=== PATIENT | female | born 1950 | race Caucasian/White ===

== ENCOUNTER 2017-08-23 07:55 | Day surgery (SDC) | payer MEDICARE, OTHER ==
[~2017-08-23] VITALS: Ht 157.5 cm; Wt 87.8 kg
[~2017-08-23 07:55] MED LIST: ASPI81EC PO; ATOR10; Aspirin EC81 MG; CALCAVITDA PO; CETI5; CHOL10002 PO; CITA20 PO; DHEA; ESTR1; LEVSOD100 PO; LISHYD2012 PO; METF500 PO; METF500C PO; METO50ER; MULVITMIND PO; Multiple Vitam1 EAC1 PO; OLME20; SIMV10 PO; Simvastatin20 MG PO; THYR60; VITAMIN D32000 UNIT PO; ZESTORETIC 20-121 EA PO
== END 2017-08-23 10:33 | disposition home or self-care (01) ==
LOC: ORSCSDS 07:55
PROVIDERS: Surgery
PROC: 0DBP8ZX Excision of Rectum, Via Natural or Artificial Opening Endoscopic, Diagnostic (ICD-10-PCS; principal; 2017-08-23 09:15)
PROC: 0DBN8ZX Excision of Sigmoid Colon, Via Natural or Artificial Opening Endoscopic, Diagnostic (ICD-10-PCS; principal; 2017-08-23 09:15)
PROC: 0DBM8ZX Excision of Descending Colon, Via Natural or Artificial Opening Endoscopic, Diagnostic (ICD-10-PCS; principal; 2017-08-23 09:15)
PROC: 0DBH8ZX Excision of Cecum, Via Natural or Artificial Opening Endoscopic, Diagnostic (ICD-10-PCS; principal; 2017-08-23 09:15)
DX: Z86.010 Personal history of colon polyps (principal); D12.0 Benign neoplasm of cecum; D12.4 Benign neoplasm of descending colon; D12.5 Benign neoplasm of sigmoid colon; D12.8 Benign neoplasm of rectum; E11.40 Type 2 diabetes mellitus with diabetic neuropathy, unspecified; I10 Essential (primary) hypertension; E03.9 Hypothyroidism, unspecified; E78.5 Hyperlipidemia, unspecified; Z79.82 Long term (current) use of aspirin; Z79.84 Long term (current) use of oral hypoglycemic drugs; Z79.899 Other long term (current) drug therapy
CPT/HCPCS: 82947; 88305

== ENCOUNTER → 2018-01-13 | Outpatient (CLI) | payer MEDICARE, OTHER | END | disposition home or self-care (01) | LOC: LAB 17:20 → LAB SHORT 17:20 | DX: N39.0 Urinary tract infection, site not specified (principal) | CPT/HCPCS: 87086 ==

== ENCOUNTER 2018-10-05 07:12 | Day surgery (SDC) | payer MEDICARE, OTHER ==
[~2018-10-05] VITALS: Ht 162.6 cm; Wt 91.2 kg
[~2018-10-05 07:12] MED LIST changes: +GLIP2.5ER; +Omeprazole20 M1
== END 2018-10-05 09:28 | disposition home or self-care (01) ==
LOC: ORSCSDS 07:12
PROVIDERS: Surgery
PROC: 0DJ08ZZ Inspection of Upper Intestinal Tract, Via Natural or Artificial Opening Endoscopic (ICD-10-PCS; principal; 2018-10-05 08:30)
PROC: 0DBL8ZX Excision of Transverse Colon, Via Natural or Artificial Opening Endoscopic, Diagnostic (ICD-10-PCS; principal; 2018-10-05 08:30)
PROC: 0DBP8ZX Excision of Rectum, Via Natural or Artificial Opening Endoscopic, Diagnostic (ICD-10-PCS; principal; 2018-10-05 08:30)
DX: K21.9 Gastro-esophageal reflux disease without esophagitis (principal); R11.0 Nausea; Z86.010 Personal history of colon polyps; D12.3 Benign neoplasm of transverse colon; D12.8 Benign neoplasm of rectum; K57.30 Diverticulosis of large intestine without perforation or abscess without bleeding; E78.5 Hyperlipidemia, unspecified; E03.9 Hypothyroidism, unspecified; E11.9 Type 2 diabetes mellitus without complications; I10 Essential (primary) hypertension; Z79.899 Other long term (current) drug therapy
CPT/HCPCS: 82947; 88305; J0330; J1980; J2405; J7120

== ENCOUNTER 2019-10-18 12:47 | Day surgery (SDC) | payer MEDICARE, OTHER ==
[~2019-10-18] VITALS: Ht 160 cm; Wt 93.4 kg
[~2019-10-18 12:47] MED LIST changes: +CELE100 PO; +Estrace Vagin42.5 GM; +Glucophage1000 MG PO; +MOTION RELIEF25 MG PO; +SPIR25 PO
== END 2019-10-18 15:09 | disposition home or self-care (01) ==
LOC: ORSCSDS 12:47
PROVIDERS: Surgery
PROC: 0DBP8ZX Excision of Rectum, Via Natural or Artificial Opening Endoscopic, Diagnostic (ICD-10-PCS; principal; 2019-10-18 14:15)
DX: Z12.11 Encounter for screening for malignant neoplasm of colon (principal); Z86.010 Personal history of colon polyps; K62.1 Rectal polyp; K57.30 Diverticulosis of large intestine without perforation or abscess without bleeding; E11.9 Type 2 diabetes mellitus without complications; I10 Essential (primary) hypertension; E03.9 Hypothyroidism, unspecified; E78.5 Hyperlipidemia, unspecified; K21.9 Gastro-esophageal reflux disease without esophagitis; E66.01 Morbid (severe) obesity due to excess calories; Z68.38 Body mass index [BMI] 38.0-38.9, adult; Z79.82 Long term (current) use of aspirin; Z79.84 Long term (current) use of oral hypoglycemic drugs; Z79.899 Other long term (current) drug therapy
CPT/HCPCS: 82947; 88305; J2704; J7120

== ENCOUNTER 2020-10-28 07:15 | Day surgery (SDC) | payer MEDICARE, OTHER ==
[~2020-10-28] VITALS: Ht 154.9 cm; Wt 90.5 kg
[2020-10-28] MEDS ORDERED: MIRALAX (07:50)
[2021-03-10] MEDS ORDERED: ESTRADIOL0.5 MG PO (14:00)
== END 2020-10-28 09:35 | disposition home or self-care (01) ==
LOC: ORSCSDS 07:15
PROVIDERS: Surgery
PROC: 0DJ08ZZ Inspection of Upper Intestinal Tract, Via Natural or Artificial Opening Endoscopic (ICD-10-PCS; principal; 2020-10-28 08:30)
PROC: 0DBP8ZX Excision of Rectum, Via Natural or Artificial Opening Endoscopic, Diagnostic (ICD-10-PCS; principal; 2020-10-28 08:30)
DX: Z12.11 Encounter for screening for malignant neoplasm of colon (principal); Z86.010 Personal history of colon polyps; K21.9 Gastro-esophageal reflux disease without esophagitis; K57.30 Diverticulosis of large intestine without perforation or abscess without bleeding; K62.1 Rectal polyp; E78.5 Hyperlipidemia, unspecified; I10 Essential (primary) hypertension; E03.9 Hypothyroidism, unspecified; E11.9 Type 2 diabetes mellitus without complications; E66.9 Obesity, unspecified; Z68.38 Body mass index [BMI] 38.0-38.9, adult; Z79.82 Long term (current) use of aspirin; Z79.84 Long term (current) use of oral hypoglycemic drugs; Z79.899 Other long term (current) drug therapy
CPT/HCPCS: 82947; 88305; J2704; J7120

== ENCOUNTER 2021-03-18 09:58 | Day surgery (SDC) | payer MEDICARE, OTHER ==
[~2021-03-18] VITALS: Ht 157.5 cm; Wt 88.9 kg
--- NOTE | 2021-03-18 08:52 | NUR ---
03/18/21 0852 MINDY GUAJARDO WRONG PATIENT INFORMATION ENTERED INTO THIS PTS CHART. THIS RN CORRECTED CHARTING.
[~2021-03-18 09:58] MED LIST changes: +ESTRADIOL0.5 MG PO; +MIRALAX
[2021-03-18] MEDS ORDERED: CITA20 PO (10:11)
[2021-03-18] MEDS ORDERED: METF500 PO (10:11)
[2021-03-18] MEDS ORDERED: CELE100 PO (10:12)
[2021-03-18] MEDS ORDERED: SPIR25 PO (10:12)
[2021-03-18] MEDS ORDERED: ZOCOR20 MG PO (10:12)
[2021-03-18] MEDS ORDERED: OMEP20ER PO (10:12)
[2021-03-18] MEDS ORDERED: LEVSOD100 PO (10:13)
[2021-03-18] MEDS ORDERED: Lisinopril2.5 MG PO (10:13)
[2021-03-18] MEDS ORDERED: Aspir 8181 MG PO (10:13)
[2021-03-18] MEDS ORDERED: GLIP2.5ER PO (10:13)
[2021-03-18] MEDS ORDERED: CLIMARA1 EACH TOP (10:14)
[2021-03-18] MEDS ORDERED: Vitamin D2000 UNIT PO (10:14)
== END 2021-03-18 11:25 | disposition home or self-care (01) ==
LOC: ORSCSDS 09:58
PROVIDERS: Ophthalmology
PROC: 08RJ3JZ Replacement of Right Lens with Synthetic Substitute, Percutaneous Approach (ICD-10-PCS; principal; 2021-03-18 11:15)
DX: H25.11 Age-related nuclear cataract, right eye (principal); E11.9 Type 2 diabetes mellitus without complications; E66.9 Obesity, unspecified; Z68.35 Body mass index [BMI] 35.0-35.9, adult; Z79.899 Other long term (current) drug therapy
CPT/HCPCS: 82947; J2001; J2250; J3010; J3301; J7040; V2632

== ENCOUNTER → 2021-06-27 | Outpatient (CLI) | payer MEDICARE, OTHER ==
[~2021-06-27] MED LIST changes: +Aspir 8181 MG PO; +CLIMARA1 EACH TOP; +GLIP2.5ER PO; +Lisinopril2.5 MG PO; +OMEP20ER PO; +Vitamin D2000 UNIT PO; +ZOCOR20 MG PO
== END | disposition home or self-care (01) ==
LOC: LAB SHORT 17:09 → LAB 17:09
DX: N39.0 Urinary tract infection, site not specified (principal)
CPT/HCPCS: 87077; 87086; 87186

== ENCOUNTER → 2023-09-03 | Outpatient (CLI) | payer MEDICARE, OTHER | LOC: LAB 12:08 → LAB SHORT 12:08 | DX: M79.89 Other specified soft tissue disorders (principal) | CPT/HCPCS: 84550 ==